=== PATIENT | female | born 1990 | race Native Hawaiian/Other Pacific Islander ===

== ENCOUNTER 2022-09-20 06:00 | Outpatient (CLI) | payer SELFPAY | END 2022-09-20 06:01 | LOC: SPT 10-04 10:32 | PROVIDERS: Visit Provider Nurse Practitioner Family | DX: Z46.89 Encounter for fitting and adjustment of other specified devices (principal); S92.902D Unspecified fracture of left foot, subsequent encounter for fracture with routine healing; X58.XXXD Exposure to other specified factors, subsequent encounter | CPT/HCPCS: 97760; L4361 ==

== ENCOUNTER → 2022-09-20 11:34 | Outpatient (BNVA) | payer OTHER, SELFPAY | PROVIDERS: Visit Provider Nurse Practitioner Family | DX: S90.32XA Contusion of left foot, initial encounter (principal); W55.12XA Struck by horse, initial encounter | CPT/HCPCS: 73630 ==

== ENCOUNTER 2022-10-18 21:41 | Emergency (ER) | payer SELFPAY ==
[2022-10-18 21:41] VITALS: BP 117/56; PULSE 99; RESP 18; TEMP 36.4; O2SAT 97; BMI 21.9
--- NOTE | 2022-10-19 01:21 | PC.NURSE ---
Pt. woke up and started yelling and demanding that we take out her I.V. Dr. Strong in room and tried to talk to patient , but patient was yelling and screaming at him and demanded to leave. Dr. Strong states that she is okay to leave a.m.a.
--- NOTE | 2022-10-19 01:43 | W.ED.PSYCHS ---
HPI - Psych General: Chief Complaint: Psychiatric Symptoms Stated Complaint: Intoxicated Time Seen by Provider: 10/18/22 21:47 Source: patient, EMS and police History of Present Illness: 32-year-old female brought in by police on EMS. By report, this lady has been drinking. She became belligerent in the field, and law enforcement was called. She continued to be belligerent with them, and EMS administered Haldol and ketamine. On my examination, she is very somnolent. She withdraws and moves appropriately to noxious stimuli. MD complaint: altered mental status Onset (ago): unknown Duration: other History of same: Yes Relieving factors: none Exacerbating factors: alcohol Context: recent alcohol abuse Associated psychiatric symptoms: other Associated symptoms: Deny homicidal ideation or suicidal ideation Treatments prior to arrival: chemical restraints Review of Systems General: Reports: ROS unobtainable due to mental status (At the time of my examination) Psych: Denies: suicidal ideation or homicidal ideation Physical Exam Const: GENERAL APPEARANCE: lethargic ORIENTATION/CONSCIOUSNESS: Yes lethargic HENMT: COMMON NORMALS: normocephalic, atraumatic and Normal external nose present HEAD & SCALP: normocephalic and atraumatic NOSE: Normal external nose present and Normal nares present Eye: COMMON NORMALS: Equal, round and reactive pupils present and EOMs intact bilaterally PUPIL: Yes Equal, round and reactive pupils present Neck/C-Spine: GENERAL: Yes trachea midline Chest: CHEST: Yes Symmetrical chest wall rise Resp: COMMON NORMALS: normal respiratory effort, No use of accessory muscles and clear to auscultation bilaterally AUSCULTATION: clear to auscultation bilaterally Cardio: COMMON NORMALS: regular rate and regular rhythm RATE: regular rate RHYTHM: regular rhythm GI: COMMON NORMALS: Normal to inspection, nondistended, normoactive bowel sounds present Extremity: COMMON NORMALS: no pedal edema Neuro: ZAIDA COMA SCALE: document GCS findings Zaida coma scale eye opening: To pressure Zaida coma scale verbal response: Words Zaida coma scale motor response: Localising Zaida coma scale total score: 10 SENSORIUM/ORIENTATION: Yes lethargic Psych: ATTITUDE: Yes uncooperative Course Vital Signs: Vital signs: Vital Signs Temperature 97.5 F L 10/18/22 21:41 Pulse Rate 99 10/18/22 21:41 Respiratory Rate 18 10/18/22 21:41 Blood Pressure 117/56 10/18/22 21:41 Pulse Oximetry 97 10/18/22 21:41 Oxygen Delivery Me thod Room Air 10/18/22 21:41 MDM - Psych Medical Decision Making Patient is obviously intoxicated on arrival. She had also been given sedative medications. She slept for around 3-1/2 hours in the emergency department, at which point she woke up, and demanded to be discharged. She is not suicidal or homicidal. She is still mildly intoxicated and belligerent. She, however, does know her name, the month, where she is, and her situation. She tells me repeatedly that she has the right to leave here when she wants, and she would like to leave. As she is not suicidal, and making sense, she is allowed to do so. She did not wish to wait on discharge papers, or sign a medical release AGAINST MEDICAL ADVICE. She barely let her nurse pulled her IV, and stormed out of the emergency department. She did this essentially with a normal gait and no assistance. As she is likely still intoxicated, law enforcement will be called. Medically, however, she is quite stable. Discharge Plan Discharge Patient Disposition: Left Against Medical Advice Clinical Impression: Alcohol intoxication Prescriptions: No Action (DME) CAM Walking Boot See Rx Instructions .Route .MEDSUPPLY Qty: 1 0RF Rx Instructions: As directed Activity Restrictions/Additional Instructions: You have chosen to leave AGAINST MEDICAL ADVICE. Coding Level of Care Code ED [employer] Printer for Ivette Celis
== END 2022-10-19 01:21 | disposition left against medical advice (07) ==
PROVIDERS: Emergency Provider Emergency Medicine
DX: F10.129 Alcohol abuse with intoxication, unspecified (principal); Z53.29 Procedure and treatment not carried out because of patient's decision for other reasons

== ENCOUNTER → 2024-04-06 13:12 | Outpatient (BNVA) | payer OTHER, MEDICAID, SELFPAY | PROVIDERS: Visit Provider Nurse Practitioner Women's Health | DX: N91.2 Amenorrhea, unspecified (principal) | CPT/HCPCS: 81025 ==

== ENCOUNTER → 2024-04-19 13:32 | Outpatient (BNVA) | payer OTHER, MEDICAID, SELFPAY | PROVIDERS: Visit Provider Nurse Practitioner Women's Health | DX: R52 Pain, unspecified (principal); N83.291 Other ovarian cyst, right side | CPT/HCPCS: 76830; 84443; 84702 ==

== ENCOUNTER → 2024-05-03 11:32 | Outpatient (BNVA) | payer OTHER, MEDICAID, SELFPAY | PROVIDERS: Visit Provider Nurse Practitioner Women's Health | DX: N91.2 Amenorrhea, unspecified (principal); R30.0 Dysuria | CPT/HCPCS: 84315 ==

== ENCOUNTER 2024-08-28 23:25 | Emergency (ER) | payer OTHER, MEDICAID, SELFPAY ==
[2024-08-28 23:27] VITALS: RESP 16; BMI 27.4
--- NOTE | 2024-08-28 23:36 | PC.NURSE ---
Pt refused to answer question or allow for vitals to be taken. Pt is belligerent during triage.
--- NOTE | 2024-08-28 23:48 | ED_ITS ---
HPI - General Adult General: Stated complaint: Fit for confinment Time Seen by Provider: 08/28/24 23:45 History of Present Illness: 34-year-old mildly to moderately intoxic ated female presents for fit for confinement. She is refusing blood pressures, she is refusing screening. She is refusing any blood draws. She is walking. She is talking. She is answering questions appropriately, although defiantly. Related Data Previous Rx's ?Medication ?Instructions ?Recorded medroxyprogesterone 10 mg tablet 10 mg PO DAILY #10 ta bs 04/20/24 (Provera) nitrofurantoin 100 mg PO BID 7 days #14 cap s 05/06/24 monohydrate/macrocrystals 100 mg capsule (Macrobid) Allergies Allergy/AdvReac Type Severity Reaction Status Date / Time melon Allergy Unknown Unknown Verified 05/03/24 09:34 peanut Allergy Unknown Unknown Verified 05/03/24 09:34 [facility] ED PFSH: Medical History Medical history unknown Family History Mother Hypertension Diabetes Denies family history of Colon cancer Ovarian cancer Heart disease Breast cancer Uterine cancer Thyroid disease Stroke Social History Smoking and tobacco/nicotine status: current every day tobacco/nicotine user (PPD) Alcohol intake: current Physical Exam Const: COMMON NORMALS: no acute distress, alert and well nourished GENERAL APPEARANCE: not cooperative, not lethargic and not ill appearing ORIENTATION/CONSCIOUSNESS: Yes awake, Yes oriented to person and Yes oriented to place; not lethargic HENMT: COMMON NORMALS: atraumatic and Normal external nose present HEAD & SCALP: atraumatic FACE & SINUS: face symmetric NOSE: Normal external nose present Eye: COMMON NORMALS: Equal, round and reactive pupils present and EOMs intact bilaterally PUPIL: Yes Equal, round and reactive pupils present Resp: COMMON NORMALS: normal respiratory effort and No use of accessory muscles Neuro: SENSORIUM/ORIENTATION: Yes alert, Yes oriented to person, Yes oriented to place and No lethargic Course Vital Signs: Vital signs: Vital Signs Respiratory Rate 16 08/28/24 23:27 Oxygen Delivery Me thod Room Air 08/28/24 23:27 MDM - General Adult Medical Decision Making This patient is awake, alert, and noncooperative. She appears healthy. No medical reason this patient cannot go to retirement. She will be discharged to custody. No radiology studies performed this visit Discharge Plan Discharge Patient Disposition: Home Clinical Impression: Alcohol intoxication Qualifiers: Complication of substance-induced condition: uncomplicated Qualified Code(s): F10.920 - Alcohol use, unspecified with intoxication, uncomplicated Condition: Stable Prescriptions: No Action medroxyprogesterone [Provera] 10 mg tablet 10 mg PO DAILY Qty: 10 0RF Rx Instructions: take 1 tab daily for 10 days nitrofurantoin monohyd/m-cryst [Macrobid] 100 mg capsule 100 mg PO BID 7 Days Qty: 14 0RF Rx Instructions: must administer with a meal/food Discharge Orders: Discharge ED (Routine); Ordered 08/28/24 Ordered By: Niranjan Strong Patient Instructions: Opioid Safety, Pain Management Activity Restrictions/Additional Instructions: You have been interviewed, I have refused medical treatment, and have been determined fit for confinement medically. You were discharged to police custody. Print Language: Polish Coding Level of Care Code ED Dispatcher Maintenance Service for Ivette Celis
--- NOTE | 2024-08-28 23:57 | PC.NURSE ---
pt in custody of NABIL to be deemed fit for confinement. pt refused all vitals and assessment.
== END 2024-08-28 23:51 | disposition home or self-care (01) ==
PROVIDERS: Emergency Provider Emergency Medicine
DX: F10.920 Alcohol use, unspecified with intoxication, uncomplicated (principal); F17.210 Nicotine dependence, cigarettes, uncomplicated
CPT/HCPCS: 99281

== ENCOUNTER 2024-12-09 18:02 | Emergency (ER) | payer MEDICAID, SELFPAY ==
[2024-12-09] VITALS (12 sets, daily range): BP systolic 82–136; BP diastolic 45–98; PULSE 79–139; RESP 14–23; O2SAT 94–100
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
--- NOTE | 2024-12-09 18:09 | ECG_ITS ---
[facility] Test Date: 2024-12-09 Pat Name: Shilpa Vasquez Department: Room: Gender: Female Bell Tier: : 1990 Requested By: Graciela Lerner Order Number: [id number] Kowalski MD: Per Lang M.D. Measurements Intervals Spencer Rate: 134 P: 65 NM: 140 QRS: 79 QRSD: 99 T: 42 QT: 287 QTc: 430 Interpretive Statements SINUS TACHYCARDIA No previous ECG available for comparison Electronically Signed On 12-11-2024 08:43:28 CDT by Per Lang M.D. [email or web address] [id number]
[2024-12-09] MEDS: LORazepam 1 MG/0.5 ML injection 2 MG (18:30)
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
[2024-12-09 18:52] LABS: ABG PCO2 39.6 mmHg (35-45); ABG PH Result 7.38 (7.35-7.45); Alveolar-Arterial Oxygen Gradi 8.6 mmHg (5-10); Arterial Blood Gas Hematocrit 45.3 % (37-47); Blood Gas Allen Test Pos; Blood Gas Operator Identificat AMH; Blood Gas Sample Site Brachial, right; Carboxyhemoglobin 2.7 %THgb (0.4-20.1); Glucose Level-ABG 121.0 mg/dL (70-115); HCO3 ABG 23.6 mmol/L (22-26); Ionized Calcium Level - ABG 1.2 mmol/L (1.1-1.4); Methemoglobin 0.5 % (0.4-1.5); Oxygen Saturation ABG 67.2; PO2 FiO2 Ratio Arterial Blood 167; Potassium Level - ABG 3.6 mmol/L (3.5-5.0); Sodium Level - ABG 147.0 mmol/L (131-143)
[2024-12-09 18:56] LABS: Blood Gas Sample Type Venous
[2024-12-09] MEDS: levETIRAcetam 1,500 MG/100 ML PREMIX 400 MG IV (19:00)
[2024-12-09 19:04] LABS: Hematocrit 42.4 % (36-47); Hemoglobin 14.80 g/dL (11.27-16.99); Mean Corpuscular HGB Conc 34.9 g/dL (30-55); Mean Corpuscular Hemoglobin 31.6 pg (27-33); Mean Corpuscular Volume 90.4 fl (85-98); Nucleated Red Blood Cells % 0 %; Platelet Count 340 10^3/cmm (157-399); Red Blood Count 4.69 10^6/uL (3.85-5.65); White Blood Count 9.91 10^3/uL (3.29-11.43)
[2024-12-09 19:23] LABS: Alanine Aminotransferase 40 U/L (0-33); Albumin Level 4.4 g/dL (3.5-5.2); Alcohol Level 259 mg/dL (0-10); Alkaline Phosphatase 91 U/L (35-105); Anion Gap 19.8 (5-19); Blood Urea Nitrogen 10 mg/dL (6-20); Calcium 9.4 mg/dL (8.5-10.5); Carbon Dioxide 21 mmol/L (22-29); Chloride 104 mmol/L (98-107); Globulin 3.5 g/dL (1.3-4.6); Glucose 129 mg/dL (65-115); Osmolality Calculated 293 mOsm/kg (285-295); Potassium 3.8 mmol/L (3.5-5.1); Sodium 141 mmol/L (136-145); Total Protein 7.9 g/dL (6.6-8.7)
[2024-12-09 19:24] LABS: Acetaminophen < 5.0 ug/mL (10-30); Salicylate < 0.3 mg/dL (3-10)
[2024-12-09 19:25] LABS: Lactic Sepsis W/Reflex 2.4 mmol/L (0.5-2.2)
[2024-12-09] MEDS: LORazepam 1 MG/0.5 ML injection 2 MG IM (19:25)
[2024-12-09] MEDS: water for injection-sterile 10 ML 2.1 ML (19:35)
[2024-12-09 19:44] LABS: Aspartate Amino Transferase 28 U/L (0-32)
[2024-12-09 19:48] LABS: Reflex Lactate Order REFLEX LACTIC ORDERD
[2024-12-09] MEDS: ketamine 100 mg/mL Inj 5 mL IVP (20:00)
[2024-12-09 20:05] LABS: Thyroid Stimulating Hormone 1.26 uIU/mL (0.27-4.20)
[2024-12-09 23:15] LABS: Lactic Acid level (Lactate) 1.0 mmol/L (0.5-2.2)
[2024-12-10 00:32] VITALS: BP 91/68; PULSE 82; RESP 16; O2SAT 97
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
[2024-12-10 02:07] VITALS: BP 105/65; PULSE 88; RESP 17; O2SAT 97
[2024-12-10 05:03] LABS: HCG, Serum Qual Negative (Negative)
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
[2024-12-10 05:32] LABS: Glucose Urine UA Negative (Normal); Nitrate Urine Negative (Negative); Specific Gravity, Urine 1.010 (1.005-1.030)
[2024-12-10 05:34] LABS: Add Urine Microscopic? YES
[2024-12-10 05:39] LABS: PCP Screen Urine Negative (Negative)
[2024-12-10 07:13] VITALS: BP 123/22; PULSE 73; O2SAT 96
[2024-12-10 07:24] LABS: PO2 ABG 35.2 mmHg (80.0-100.0)
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
[2024-12-10 08:43] VITALS: BP 122/71; PULSE 94; O2SAT 100
== END 2024-12-10 08:44 | disposition home or self-care (01) ==
PROVIDERS: Emergency Medicine; Emergency Provider Family Medicine
DX: F10.129 Alcohol abuse with intoxication, unspecified (principal); Y90.8 Blood alcohol level of 240 mg/100 ml or more; F17.210 Nicotine dependence, cigarettes, uncomplicated
CPT/HCPCS: 36415; 36600; 80051; 80053; 80306; 80307; 81001; 82330; 82805; 83605; 84443; 84703; 85025; 93005; 96365; 96372; 96375; 99285; J1953; J2060; J3486; J3490; J7030